=== PATIENT | male | born 1995 | race Caucasian/White ===

== ENCOUNTER 2024-08-30 17:21 | Emergency (ER) | payer BC ==
[~2024-08-30] VITALS: Ht 188 cm; Wt 72.6 kg
[2024-08-30 17:43] VITALS: BP 106/83; TEMP 98.8; O2SAT 99
== END 2024-08-30 18:24 | disposition left against medical advice (07) ==
LOC: ER 17:30
DX: R10.11 Right upper quadrant pain (principal); Z53.21 Procedure and treatment not carried out due to patient leaving prior to being seen by health care provider